=== PATIENT | female | born 1945 | race African-American/Black ===

== ENCOUNTER 2020-03-06 09:08 | Day surgery (SDC) | payer MEDICARE ==
[~2020-03-06] VITALS: Ht 162.6 cm; Wt 68.2 kg
[2020-03-06] VITALS (10 sets, daily range): BP systolic 107–150; BP diastolic 52–70; PULSE 47–62; TEMP 98.1
[2020-03-06] MEDS ORDERED: GLUCOPHAGE500 MG/TAB PO (09:37)
[2020-03-06] MEDS ORDERED: ARMOUR THYROID90 MG PO (09:37)
[2020-03-06] MEDS ORDERED: XANAX 1MG1 MG PO (09:38)
[2020-03-06] MEDS ORDERED: HCTZ 25MG TAB25 MG PO (09:40)
[2020-03-06 10:03] LABS: HEMATOCRIT 38.1 % (37.0-47.0); HEMOGLOBIN 12.4 g/dl (12.5-16.0); MEAN CELL VOLUME 86 fl (80.0-100.0); MEAN CORPUSCULAR HEMOGLOBIN 28 pg (27.0-31.0); MEAN CORPUSCULAR HGB CONC 33 g/dl (33.0-37.0); MEAN PLATELET VOLUME 12.6 fl (7.4-10.4); PLATELET COUNT 152 K/mm3 (130-400); RED BLOOD COUNT 4.42 M/mm3 (4.10-5.30); REDCELL DISTRIBUTION WIDTH-CV 14.6 % (11.5-14.5)
[2020-03-06 10:09] LABS: PROTHROMBIN TIME 10.9 SECONDS (9.7-12.8)
[2020-03-06 10:11] LABS: CALCIUM 10.2 mg/dL (8.4-10.2); CREATININE, serum 0.78 (0.52-1.25); POTASSIUM 3.1 mmol/L (3.4-5.0)
--- NOTE | 2020-03-06 11:04 | NUR ---
SEE MERGE DOCUMENTATION FOR MEDICATION ADMINISTRATION AND INTRA/POST PROCEUDRE SEDATION ASSESSMENTS.
--- NOTE | 2020-03-06 14:00 | NUR ---
DC instructions reviewed with pt, she expresses understanding. Air from TR band has been removed in 2ml increments with no bleeding. Site now dressed with 2x2 and bandaid, wrapped with coban. INT DC'd with catheter intact, bleeding controlled at site. Pt waiting for daughter to arrive to take her home. When she arrives, pt will be assisted out by wheelchair.
== END 2020-03-06 14:30 | disposition home or self-care (01) ==
LOC: COL.CAR
PROVIDERS: Internal Medicine Cardiovascular Disease
DX: I25.110 Atherosclerotic heart disease of native coronary artery with unstable angina pectoris (principal); I11.0 Hypertensive heart disease with heart failure; I50.20 Unspecified systolic (congestive) heart failure; Z79.52 Long term (current) use of systemic steroids; Z79.84 Long term (current) use of oral hypoglycemic drugs
CPT/HCPCS: J1644; J2250; J3010; Q9967